=== PATIENT | female | born 1945 | race Caucasian/White ===

== ENCOUNTER → 2020-04-27 | Outpatient (CLI) | payer MEDICARE, BC ==
[~2020-04-27] MED LIST: AEROCHAMBER1 EA XX; AUGMENTIN 875-1 EACH PO; NORCO 5-325 TA1 EACH PO; TESSALON PERLE100 MG PO; VENTOLIN HFA 66.7 GM INH; ZOFRAN4 MG PO
[2020-04-27 10:41] LABS: HEMOGLOBIN 10.5 gm/dl (12.3-15.3); RED BLOOD COUNT 3.47 M/UL (4.00-5.10); WHITE BLOOD COUNT 9.8 K/UL (4.5-11.0)
== END ==
LOC: LAB 09:59
PROVIDERS: Colon & Rectal Surgery
DX: D50.0 Iron deficiency anemia secondary to blood loss (chronic) (principal)
CPT/HCPCS: 85027

== ENCOUNTER 2020-04-29 01:51 | Emergency (ER) | payer MEDICARE, BC ==
[2020-04-29 02:12] LABS: HEMOGLOBIN 11.9 gm/dl (12.3-15.3); RED BLOOD COUNT 3.95 M/UL (4.00-5.10); WHITE BLOOD COUNT 10.9 K/UL (4.5-11.0)
[2020-04-29 02:24] LABS: BUN/CREATININE RATIO 12 (0-10)
== END 2020-04-29 05:00 | disposition short-term general hospital (02) ==
LOC: ER1 01:51
PROVIDERS: Emergency Medicine
DX: K63.1 Perforation of intestine (nontraumatic) (principal); I12.9 Hypertensive chronic kidney disease with stage 1 through stage 4 chronic kidney disease, or unspecified chronic kidney disease; N18.2 Chronic kidney disease, stage 2 (mild); Z90.49 Acquired absence of other specified parts of digestive tract; Z90.710 Acquired absence of both cervix and uterus
CPT/HCPCS: 36415; 36556; 51702; 71045; 80053; 81001; 83605; 83690; 84484; 85025; 85610; 85730; 86850; 86900; 86901; 87040; 93005; 96365; 96375; 99285; C1751; J2270; J2405; J2550; Q9967

== ENCOUNTER → 2021-05-28 | Outpatient (CLI) | payer MEDICARE, BC | LOC: RAD 11:27 | DX: I10 Essential (primary) hypertension (principal); E78.2 Mixed hyperlipidemia | CPT/HCPCS: 71046 ==